=== PATIENT | male | born 1935 | race Caucasian/White ===

== ENCOUNTER 2018-02-22 12:05 | Emergency (ER) | payer MEDICARE, OTHER ==
[2018-02-22] MEDS ORDERED: DEXAMETHASONE SOD PHOSPHATE 10MG/ML 1ML VIAL ONE (13:13)
== END 2018-02-22 14:51 | disposition home or self-care (01) ==
LOC: EDH 12:05
DX: M16.11 Unilateral primary osteoarthritis, right hip (principal); M19.90 Unspecified osteoarthritis, unspecified site; Z98.890 Other specified postprocedural states; Z88.8 Allergy status to other drugs, medicaments and biological substances
CPT/HCPCS: 73700; 96372; 99284; J1100